=== PATIENT | male | born 1965 | race African-American/Black ===

== ENCOUNTER 2017-06-02 14:29 | Emergency (ER) | payer BC ==
[~2017-06-02] VITALS: Ht 170.2 cm; Wt 75.0 kg
[~2017-06-02 14:29] MED LIST: CIPRO500 MG OR; FLEXERIL OR; LORTAB 5 OR; LORTAB5 PO; MEDDOSEPAK OR; NAPROSYN375 MG PO; NAPROSYN500 MG OR; NAPROSYN500 MG PO; PENICILLN VK500 MG PO; TYLENOL 500MG TAB PO; ULTRAM50 MG OR
[2017-06-02 15:21] LABS: HEMATOCRIT 48.5 % (39.0-50.0); HEMOGLOBIN 16.6 g/dl (14.0-18.0); IMMATURE GRANULOCYTES 0.1 % (0.0-1.0); MEAN CELL VOLUME 97.6 fL CALC (80.0-100.0); MEAN CORPUSCULAR HGB 33.4 pG CALC (26.0-32.0); MEAN CORPUSCULAR HGB CONC 34.2 g/L CALC (32.0-36.0); NEUT# 3.8 thou/uL (1.82-7.42); RED BLOOD COUNT 4.97 mill/uL (4.70-6.10); RED CELL DISTRI WIDTH 12.6 % (11.5-15.5)
[2017-06-02 15:24] LABS: ALKALINE PHOSPHATASE 127 u/l (38-126); ANION GAP 16 (6-22 (CALC)); BILIRUBIN, TOTAL 0.7 mg/dL (0.0-1.4); BUN 11 mg/dL (9-20); BUN/CREATININE RATIO 9 (12-20 (CALC)); CARBON DIOXIDE 24 mmol/l (22-30); CHLORIDE 108 mmol/l (95-108); CREATININE 1.2 mg/dL (0.7-1.3); GFR > 60 ML/MIN (>=60 (CALC)); GFR FOR AFR.AMER. > 60 ML/MIN (>=60 (CALC)); POTASSIUM 4.5 mmol/l (3.5-5.1); SGPT/ALT 23 u/l (21-72); SODIUM 144 mmol/l (137-146); TOTAL PROTEIN 8.2 g/dL (6.3-8.2)
[2017-06-02 15:27] LABS: SGOT/AST 62 u/l (17-59)
[2017-06-02] MEDS ORDERED: TORADOL PO (16:52)
[2017-06-02 17:10] VITALS: BP 158/95
== END 2017-06-02 17:13 | disposition home or self-care (01) | DRG 206 ==
LOC: ED 14:29
PROVIDERS: Family Medicine
DX: M94.0 Chondrocostal junction syndrome [Tietze] (principal); F17.210 Nicotine dependence, cigarettes, uncomplicated; I10 Essential (primary) hypertension; R07.9 Chest pain, unspecified; R42 Dizziness and giddiness

== ENCOUNTER 2017-08-05 15:33 | Emergency (ER) | payer BC ==
[~2017-08-05] VITALS: Ht 170.2 cm; Wt 88.0 kg
[~2017-08-05 15:33] MED LIST changes: +TORADOL PO
[2017-08-05] MEDS ORDERED: METOPROL TAR25 MG PO (15:40)
[2017-08-05 16:35] LABS: HEMATOCRIT 50.6 % (39.0-50.0); HEMOGLOBIN 17.1 g/dl (14.0-18.0); IMMATURE GRANULOCYTES 0.2 % (0.0-1.0); MEAN CELL VOLUME 97.3 fL CALC (80.0-100.0); MEAN CORPUSCULAR HGB 32.9 pG CALC (26.0-32.0); MEAN CORPUSCULAR HGB CONC 33.8 g/L CALC (32.0-36.0); NEUT# 5.03 thou/uL (1.82-7.42); RED BLOOD COUNT 5.2 mill/uL (4.70-6.10); RED CELL DISTRI WIDTH 12.8 % (11.5-15.5)
[2017-08-05 16:37] LABS: URINE BILIRUBIN - DIPSTICK NEGATIVE (NEGATIVE); URINE BLOOD DIPSTICK NEGATIVE (NEGATIVE); URINE CLARITY CLOUDY; URINE COLOR DK. YELLOW; URINE GLUCOSE - DIPSTICK NEGATIVE (NEGATIVE); URINE KETONE NEGATIVE (NEGATIVE); URINE LEUK ESTERASE SMALL (NEGATIVE); URINE NITRITE - DIPSTICK NEGATIVE (Negative); URINE PH 5.5 (4.5-8.0); URINE PROTEIN - DIPSTICK 30 mg/dL (NEG-TRACE); URINE SPECIFIC GRAVITY >=1.030
[2017-08-05 16:40] LABS: BARBITURATES NEGATIVE (NEGATIVE); COCAINE POSITIVE (NEGATIVE); METHADONE NEGATIVE (NEGATIVE); OXCYCODONE NEGATIVE (NEGATIVE); TETRAHYDROCANNABIONOL NEGATIVE (NEGATIVE); TRICYLIC ANTIDEPRESSANTS NEGATIVE (NEGATIVE)
[2017-08-05 16:43] LABS: URINE SQUAMOUS EPITHELIAL CELL MODERATE EPI/hpf (0-FEW)
[2017-08-05 16:44] LABS: URINE MUCUS MANY hpf (NONE-FEW)
[2017-08-05 17:00] VITALS: BP 130/77
[2017-08-05] MEDS ORDERED: FLEXERIL PO (17:00)
[2017-08-05] MEDS ORDERED: TORADOL PO (17:00)
== END 2017-08-05 17:12 | disposition home or self-care (01) | DRG 563 ==
LOC: ED 15:33
PROVIDERS: Emergency Medicine
DX: S39.012A Strain of muscle, fascia and tendon of lower back, initial encounter (principal); B95.4 Other streptococcus as the cause of diseases classified elsewhere; F17.210 Nicotine dependence, cigarettes, uncomplicated; N20.0 Calculus of kidney

== ENCOUNTER 2017-09-06 02:49 | Emergency (ER) | payer BC ==
[~2017-09-06] VITALS: Ht 170.2 cm; Wt 84.0 kg
[~2017-09-06 02:49] MED LIST changes: +FLEXERIL PO; +METOPROL TAR25 MG PO
[2017-09-06 03:26] LABS: IMMATURE GRANULOCYTES 0.7 % (0.0-1.0); MEAN CELL VOLUME 100.7 fL CALC (80.0-100.0); MEAN CORPUSCULAR HGB 33.6 pG CALC (26.0-32.0); MEAN CORPUSCULAR HGB CONC 33.3 g/L CALC (32.0-36.0); NEUT# 4.15 thou/uL (1.82-7.42); RED BLOOD COUNT 2.8 mill/uL (4.70-6.10); RED CELL DISTRI WIDTH 12.6 % (11.5-15.5)
[2017-09-06 03:28] LABS: HEMATOCRIT 28.2 % (39.0-50.0); HEMOGLOBIN 9.4 g/dl (14.0-18.0)
[2017-09-06] MEDS ORDERED: PRAVSTATIN SODI10 MG PO (03:32)
[2017-09-06] MEDS ORDERED: LOSARTAN POTASS1 TA1 PO (03:33)
[2017-09-06] MEDS ORDERED: CYCLOBENZAPR10 MG PO (03:34)
[2017-09-06] MEDS ORDERED: CLOPIDOGREL75 MG PO (03:35)
[2017-09-06 03:39] LABS: ALKALINE PHOSPHATASE 64 u/l (38-126); AMYLASE 49 u/l (30-110); ANION GAP 14 (6-22 (CALC)); BILIRUBIN, TOTAL 0.2 mg/dL (0.0-1.4); BUN 58 mg/dL (9-20); BUN/CREATININE RATIO 44 (12-20 (CALC)); CARBON DIOXIDE 18 mmol/l (22-30); CHLORIDE 111 mmol/l (95-108); CREATININE 1.3 mg/dL (0.7-1.3); GFR 58 ML/MIN (>=60 (CALC)); GFR FOR AFR.AMER. > 60 ML/MIN (>=60 (CALC)); LIPASE 114 u/l (23-300); POTASSIUM 4.3 mmol/l (3.5-5.1); SGPT/ALT 29 u/l (21-72); SODIUM 139 mmol/l (137-146)
[2017-09-06 03:42] LABS: ALBUMIN 2.8 g/dL (3.2-5.0); SGOT/AST 14 u/l (17-59); TOTAL PROTEIN 5.7 g/dL (6.3-8.2)
[2017-09-06 03:51] LABS: MYOGLOBIN 35 ng/mL (0 - 121)
[2017-09-06 04:46] VITALS: BP 146/79
== END 2017-09-06 04:45 | disposition short-term general hospital (02) | DRG 379 ==
LOC: ED 02:49
PROVIDERS: Emergency Medicine
DX: K92.2 Gastrointestinal hemorrhage, unspecified (principal); I10 Essential (primary) hypertension; F17.210 Nicotine dependence, cigarettes, uncomplicated; Z95.5 Presence of coronary angioplasty implant and graft
CPT/HCPCS: S0164

== ENCOUNTER 2020-04-25 10:28 | Emergency (ER) | payer OTHER ==
[~2020-04-25] VITALS: Ht 170.2 cm; Wt 84.0 kg
[~2020-04-25 10:28] MED LIST changes: +CLOPIDOGREL75 MG PO; +CYCLOBENZAPR10 MG PO; +LOSARTAN POTASS1 TA1 PO; +PRAVSTATIN SODI10 MG PO
[2020-04-25] MEDS ORDERED: MOTRIN400 MG/TAB PO (11:08)
[2020-04-25 12:32] VITALS: BP 174/90
== END 2020-04-25 12:33 | disposition home or self-care (01) | DRG 552 ==
LOC: ED 10:28
DX: M54.42 Lumbago with sciatica, left side (principal); I10 Essential (primary) hypertension; E66.9 Obesity, unspecified; F17.210 Nicotine dependence, cigarettes, uncomplicated; Z95.5 Presence of coronary angioplasty implant and graft; V43.52XA Car driver injured in collision with other type car in traffic accident, initial encounter

== ENCOUNTER 2020-06-24 | Emergency (ER) | payer SELFPAY ==
[~2020-06-24] MED LIST changes: +MOTRIN400 MG/TAB PO
[2020-06-24 22:46] LABS: HEMATOCRIT 45.9 % (39.0-50.0); HEMOGLOBIN 15.1 g/dl (14.0-18.0); IMMATURE GRANULOCYTES 0.1 % (0.0-5.0); MEAN CELL VOLUME 97.5 fL CALC (80.0-100.0); MEAN CORPUSCULAR HGB 32.1 pG CALC (26.0-32.0); MEAN CORPUSCULAR HGB CONC 32.9 g/dL CAL (32.0-36.0); NEUT# 4.16 thou/uL (1.82-7.42); RED BLOOD COUNT 4.71 mill/uL (4.70-6.10); RED CELL DISTRI WIDTH 13.1 % (11.5-15.5)
[2020-06-24 23:00] LABS: AMYLASE 87 u/l (30-110); BUN 12 mg/dL (9-20); BUN/CREATININE RATIO 10 (12-20 (CALC)); CHLORIDE 103 mmol/l (95-108); CREATININE 1.2 mg/dL (0.7-1.3); GFR > 60 ML/MIN (>=60 (CALC)); GFR FOR AFR.AMER. > 60 ML/MIN (>=60 (CALC)); POTASSIUM 4.1 mmol/l (3.5-5.1); SGOT/AST 24 u/l (17-59); SODIUM 137 mmol/l (137-146)
[2020-06-24 23:07] LABS: ALBUMIN 3.9 g/dL (3.2-5.0); ALKALINE PHOSPHATASE 113 u/l (38-126); ANION GAP 12 (6-22 (CALC)); BILIRUBIN, TOTAL 0.5 mg/dL (0.0-1.4); CARBON DIOXIDE 26 mmol/l (22-30); TOTAL PROTEIN 7.4 g/dL (6.3-8.2)
[2020-06-25 02:42] LABS: URINE BILIRUBIN - DIPSTICK NEGATIVE (NEGATIVE); URINE BLOOD DIPSTICK NEGATIVE (NEGATIVE); URINE COLOR YELLOW; URINE GLUCOSE - DIPSTICK NEGATIVE (NEGATIVE); URINE KETONE NEGATIVE (NEGATIVE); URINE LEUK ESTERASE NEGATIVE (NEGATIVE); URINE PROTEIN - DIPSTICK NEGATIVE (NEG-TRACE); URINE UROBILINOGEN - DIPSTICK 0.2 E.U./dL (0.2)
[2020-06-25 02:43] LABS: URINE NITRITE - DIPSTICK NEGATIVE (Negative)
[2020-09-13] MEDS ORDERED: PROTONIX40 M2 PO (14:05)
== END 2020-06-25 04:33 | disposition home or self-care (01) | DRG 392 ==
PROVIDERS: Emergency Medicine
DX: R10.33 Periumbilical pain (principal); I10 Essential (primary) hypertension; I25.10 Atherosclerotic heart disease of native coronary artery without angina pectoris; F17.200 Nicotine dependence, unspecified, uncomplicated; Z87.11 Personal history of peptic ulcer disease; Z95.5 Presence of coronary angioplasty implant and graft
CPT/HCPCS: Q9967; S0164

== ENCOUNTER 2020-07-01 | Emergency (ER) | payer SELFPAY ==
[2020-07-01 23:17] LABS: HEMATOCRIT 48.9 % (39.0-50.0); HEMOGLOBIN 16.4 g/dl (14.0-18.0); IMMATURE GRANULOCYTES 0.1 % (0.0-5.0); MEAN CELL VOLUME 95.9 fL CALC (80.0-100.0); MEAN CORPUSCULAR HGB 32.2 pG CALC (26.0-32.0); MEAN CORPUSCULAR HGB CONC 33.5 g/dL CAL (32.0-36.0); NEUT# 5.41 thou/uL (1.82-7.42); RED BLOOD COUNT 5.1 mill/uL (4.70-6.10)
[2020-07-01 23:21] LABS: URINE BILIRUBIN - DIPSTICK NEGATIVE (NEGATIVE); URINE BLOOD DIPSTICK NEGATIVE (NEGATIVE); URINE COLOR YELLOW; URINE GLUCOSE - DIPSTICK NEGATIVE (NEGATIVE); URINE KETONE NEGATIVE (NEGATIVE); URINE LEUK ESTERASE NEGATIVE (NEGATIVE); URINE NITRITE - DIPSTICK NEGATIVE (Negative); URINE PROTEIN - DIPSTICK NEGATIVE (NEG-TRACE); URINE SPECIFIC GRAVITY 1.025; URINE UROBILINOGEN - DIPSTICK 0.2 E.U./dL (0.2)
[2020-07-01 23:43] LABS: ALBUMIN 4.3 g/dL (3.2-5.0); ALKALINE PHOSPHATASE 122 u/l (38-126); AMYLASE 97 u/l (30-110); ANION GAP 11 (6-22 (CALC)); BILIRUBIN, TOTAL 0.6 mg/dL (0.0-1.4); BUN 12 mg/dL (9-20); BUN/CREATININE RATIO 10 (12-20 (CALC)); CARBON DIOXIDE 29 mmol/l (22-30); CHLORIDE 101 mmol/l (95-108); CREATININE 1.2 mg/dL (0.7-1.3); GFR > 60 ML/MIN (>=60 (CALC)); GFR FOR AFR.AMER. > 60 ML/MIN (>=60 (CALC)); LIPASE 194 u/l (23-300); POTASSIUM 4.3 mmol/l (3.5-5.1); SODIUM 137 mmol/l (137-146); TOTAL PROTEIN 8.6 g/dL (6.3-8.2)
[2020-07-01 23:48] LABS: SGOT/AST 51 u/l (17-59)
[2020-07-01] MEDS ORDERED: MIRALAX17 GM PO (23:57)
[2020-07-01] MEDS ORDERED: MAGNESIUM296 ML/BTL PO (23:57)
[2020-09-13] MEDS ORDERED: PROTONIX40 M2 PO (14:05)
== END 2020-07-02 00:43 | disposition home or self-care (01) | DRG 392 ==
PROVIDERS: Family Medicine
DX: K59.00 Constipation, unspecified (principal); I10 Essential (primary) hypertension; I25.10 Atherosclerotic heart disease of native coronary artery without angina pectoris; F17.200 Nicotine dependence, unspecified, uncomplicated; Z87.11 Personal history of peptic ulcer disease

== ENCOUNTER 2020-07-23 17:30 | Emergency (ER) | payer BC ==
[~2020-07-23] VITALS: Ht 170.2 cm; Wt 84.0 kg
[~2020-07-23 17:30] MED LIST changes: +MAGNESIUM296 ML/BTL PO; +MIRALAX17 GM PO
[2020-07-23 18:05] LABS: HEMATOCRIT 45.2 % (39.0-50.0); HEMOGLOBIN 15.1 g/dl (14.0-18.0); IMMATURE GRANULOCYTES 0.1 % (0.0-5.0); MEAN CELL VOLUME 95.6 fL CALC (80.0-100.0); MEAN CORPUSCULAR HGB 31.9 pG CALC (26.0-32.0); MEAN CORPUSCULAR HGB CONC 33.4 g/dL CAL (32.0-36.0); NEUT# 4.84 thou/uL (1.82-7.42); RED BLOOD COUNT 4.73 mill/uL (4.70-6.10); RED CELL DISTRI WIDTH 12.4 % (11.5-15.5)
[2020-07-23 18:17] LABS: ALBUMIN 3.8 g/dL (3.2-5.0); ALKALINE PHOSPHATASE 123 u/l (38-126); ANION GAP 9 (6-22 (CALC)); BILIRUBIN, TOTAL 0.4 mg/dL (0.0-1.4); BUN 11 mg/dL (9-20); BUN/CREATININE RATIO 9 (12-20 (CALC)); CARBON DIOXIDE 28 mmol/l (22-30); CHLORIDE 105 mmol/l (95-108); CREATININE 1.3 mg/dL (0.7-1.3); GFR 58 ML/MIN (>=60 (CALC)); GFR FOR AFR.AMER. > 60 ML/MIN (>=60 (CALC)); LIPASE 127 u/l (23-300); POTASSIUM 3.6 mmol/l (3.5-5.1); SGOT/AST 28 u/l (17-59); SODIUM 138 mmol/l (137-146)
[2020-07-23 18:46] LABS: URINE BILIRUBIN - DIPSTICK NEGATIVE (NEGATIVE); URINE BLOOD DIPSTICK TRACE-INTACT (NEGATIVE); URINE COLOR YELLOW; URINE GLUCOSE - DIPSTICK NEGATIVE (NEGATIVE); URINE KETONE NEGATIVE (NEGATIVE); URINE LEUK ESTERASE NEGATIVE (NEGATIVE); URINE PROTEIN - DIPSTICK NEGATIVE (NEG-TRACE); URINE SPECIFIC GRAVITY 1.025; URINE UROBILINOGEN - DIPSTICK 0.2 E.U./dL (0.2)
[2020-07-23 18:47] LABS: URINE NITRITE - DIPSTICK NEGATIVE (Negative)
[2020-07-23] MEDS ORDERED: METRONIDAZOL500 MG PO (20:02)
[2020-07-23] MEDS ORDERED: CIPROFLOXACN500 MG PO (20:02)
[2020-07-23 20:04] VITALS: BP 129/82
[2020-09-13] MEDS ORDERED: PROTONIX40 M2 PO (14:05)
== END 2020-07-23 20:35 | disposition home or self-care (01) | DRG 392 ==
LOC: ED 17:30
DX: K29.80 Duodenitis without bleeding (principal); I10 Essential (primary) hypertension; I25.10 Atherosclerotic heart disease of native coronary artery without angina pectoris; F17.200 Nicotine dependence, unspecified, uncomplicated; Z87.11 Personal history of peptic ulcer disease; Z95.5 Presence of coronary angioplasty implant and graft
CPT/HCPCS: Q9967; S0164

== ENCOUNTER 2020-08-01 00:15 | Inpatient (IN) | payer BC ==
[~2020-08-01] VITALS: Ht 170.2 cm; Wt 90.6 kg
[~2020-08-01 00:15] MED LIST changes: +CIPROFLOXACN500 MG PO; +METRONIDAZOL500 MG PO
--- NOTE | 2020-08-01 00:20 | NUR ---
PT AMBULATORY TO ROOM # 9 FOR BEDSIDE TRIAGE.
--- NOTE | 2020-08-01 00:55 | NUR ---
IV SITE INITIATED TO - #20G, X1 ATTEMPT. LABS COLLECTED.
[2020-08-01 01:39] LABS: ALBUMIN 3.9 g/dL (3.2-5.0); ALKALINE PHOSPHATASE 110 u/l (38-126); AMYLASE 85 u/l (30-110); ANION GAP 9 (6-22 (CALC)); BUN 11 mg/dL (9-20); BUN/CREATININE RATIO 9 (12-20 (CALC)); CARBON DIOXIDE 28 mmol/l (22-30); CHLORIDE 105 mmol/l (95-108); CREATININE 1.2 mg/dL (0.7-1.3); GFR > 60 ML/MIN (>=60 (CALC)); GFR FOR AFR.AMER. > 60 ML/MIN (>=60 (CALC)); LIPASE 171 u/l (23-300); POTASSIUM 4.2 mmol/l (3.5-5.1); SGOT/AST 28 u/l (17-59); SODIUM 137 mmol/l (137-146); TOTAL PROTEIN 8.2 g/dL (6.3-8.2)
[2020-08-01 01:40] LABS: BILIRUBIN, TOTAL 0.2 mg/dL (0.0-1.4)
[2020-08-01 01:48] LABS: HEMATOCRIT 48.7 % (39.0-50.0); HEMOGLOBIN 16.1 g/dl (14.0-18.0); IMMATURE GRANULOCYTES 0.3 % (0.0-5.0); MEAN CORPUSCULAR HGB 32.1 pG CALC (26.0-32.0); MEAN CORPUSCULAR HGB CONC 33.1 g/dL CAL (32.0-36.0); NEUT# 5.61 thou/uL (1.82-7.42); RED BLOOD COUNT 5.02 mill/uL (4.70-6.10)
--- NOTE | 2020-08-01 02:00 | NUR ---
PT DRINKING 1ST GASTROGRAFFIN.
--- NOTE | 2020-08-01 03:20 | NUR ---
GASTROGRAFFIN COMPLETED. CT AWARE.
--- NOTE | 2020-08-01 04:30 | NUR ---
PT RESTING ON STRETCHER IN NAD. RESP EVEN AND UNLAB. SKIN WARM AND DRY. VERBALIZES NO NEEDS AT THIS TIME. CALL LGT WITHIN REACH.
--- NOTE | 2020-08-01 05:58 | NUR ---
Admission Note Report Given to: ADRIÁN CERVANTES Transported by: X Wheelchair Stretcher Transported with: X Nurse Transporter X Patent IV O2 Weigher And Grader Location: ICU X MS2 PT TRANSPORTED TO [place] VIA BY DOROTHEA CERVANTES IN STABLE CONDIITON.
[2020-08-01 06:00] VITALS: BP 145/87
--- NOTE | 2020-08-01 06:52 | NUR ---
PATIENT ADMITTED FROM ER VIA WHEELCHAIR WITH ER STAFF IN ATTENDANCE. PATIENT ABLE TO AMBULATE TO THE BR-STEADY GAIT. RESTING IN BED. IVF NS HUNG AND INFUSING VIA LAC SITE AT 200CC/HR. SITE IS HEALTHY WITH GOOD BLOOD RETURN. PATIENT C/O BURNING ABD PAIN-MEDICATED WITH MORPHINE 4MG IVP FOR PAIN. NPO AT THIS TIME. INSTRUCTED THAT WE NEED URINE SPEC WHEN HE IS ABLE TO PROVIDE. ORIENTED TO ROOM AND SURROUNDINGS. INSTRUCTED ON USE OF NURSE CALL LIGHT SYSTEM, TV REMOTE, AND PHONE. CALL LIGHT IN REACH. WILL CONT TO MONITOR.
[2020-08-01 08:00] VITALS: BP 146/91
--- NOTE | 2020-08-01 08:00 | NUR ---
ASSESSMENT IS COMPLETED: IV SITE IS FREE FROM REDNESS OR EDEMA. HR IS REG,PULSES ARE STRONG X4, ABD IS SOFT/DISTENDED WITH ACTIVE BS. BREATH SOUNDS ARE CLEAR,BILATERALLY, CONTINUE TO OBSERVE AND MONITOR.
--- NOTE | 2020-08-01 12:00 | NUR ---
PT IS RELAXING IN BED WITH NO DISTRESS NOTED. IV SITE IS FREE FROM REDNESS OR EDEMA.
--- NOTE | 2020-08-01 14:00 | NUR ---
URINE OBTAINED AND DR COOPER IN TO VISIT WITH PT.
[2020-08-01 14:32] LABS: URINE BILIRUBIN - DIPSTICK NEGATIVE (NEGATIVE); URINE BLOOD DIPSTICK NEGATIVE (NEGATIVE); URINE COLOR YELLOW; URINE GLUCOSE - DIPSTICK NEGATIVE (NEGATIVE); URINE KETONE NEGATIVE (NEGATIVE); URINE LEUK ESTERASE NEGATIVE (NEGATIVE); URINE PH 5.5 (4.5-8.0); URINE PROTEIN - DIPSTICK NEGATIVE (NEG-TRACE); URINE UROBILINOGEN - DIPSTICK 0.2 E.U./dL (0.2)
[2020-08-01 14:33] LABS: URINE NITRITE - DIPSTICK NEGATIVE (Negative)
[2020-08-01 15:10] VITALS: BP 153/93
--- NOTE | 2020-08-01 16:00 | NUR ---
PT IS RELAXING IN BED WITH NO DISTRESS NOTED. IV SITE IS FREE FROM REDNESS ORE JERMAIN.
--- NOTE | 2020-08-01 19:00 | NUR ---
REPORT FROM SETH SON. ASSUMED PT CARE.
[2020-08-01 19:06] VITALS: BP 158/84
--- NOTE | 2020-08-01 21:31 | NUR ---
AWAITING BED ASSIGNMENT FOR TRANSFER TO [facility]. DR COOPER NOTIFIED.
--- NOTE | 2020-08-02 00:33 | NUR ---
PT MEDICATED FOR ABD PAIN WITH PRN MORPHINE. IVF INFUSING WITHOUT DIFFICULTY. NO APPARENT DISTRESS NOTED. ABD SOFT DISTENDED, ACTIVE BOWEL SOUNDS NOTED. PT REMAINS NPO. CALL LIGHT WITHIN REACH. WILL CONTINUE TO MONITOR.
[2020-08-02 04:00] VITALS: BP 152/87
--- NOTE | 2020-08-02 05:13 | NUR ---
CALL RECEIVED FROM THIERRY AT [facility], CHECKING STATUS OF PT AND NOTIFIED MEDICAL TERMINOLOGIST STILL WAITING FOR ACCEPTING PHYSICIAN AND BED ASSIGNMENT. COUNTY COMMISSIONER NOTIFIED AT THIS TIME.
[2020-08-02 05:52] LABS: HEMATOCRIT 45.6 % (39.0-50.0); HEMOGLOBIN 14.8 g/dl (14.0-18.0); MEAN CELL VOLUME 97.6 fL CALC (80.0-100.0); MEAN CORPUSCULAR HGB 31.7 pG CALC (26.0-32.0); MEAN CORPUSCULAR HGB CONC 32.5 g/dL CAL (32.0-36.0); RED BLOOD COUNT 4.67 mill/uL (4.70-6.10); RED CELL DISTRI WIDTH 12.9 % (11.5-15.5)
[2020-08-02 06:29] LABS: ANION GAP 9 (6-22 (CALC)); BUN 9 mg/dL (9-20); BUN/CREATININE RATIO 8 (12-20 (CALC)); CHLORIDE 111 mmol/l (95-108); CREATININE 1.1 mg/dL (0.7-1.3); GFR > 60 ML/MIN (>=60 (CALC)); GFR FOR AFR.AMER. > 60 ML/MIN (>=60 (CALC)); MAGNESIUM 1.8 mg/dL (1.6-2.3); POTASSIUM 4.6 mmol/l (3.5-5.1); SODIUM 137 mmol/l (137-146)
[2020-08-02 06:48] LABS: CARBON DIOXIDE 22 mmol/l (22-30)
[2020-08-02 08:20] VITALS: BP 155/88
--- NOTE | 2020-08-02 08:20 | NUR ---
ASSESSMENT IS COMPLETED: IV SITE IS FREE FROM REDNESS OR EDEMA. HR IS REG,PULSES ARE STRONG, X4, ABD IS SOFT WITH ACTIVE BS., BREATH SOUNDS ARE CLEAR,BILATERALLY. CONTINUE TO OSBERVE AND MONITOR.
--- NOTE | 2020-08-02 12:25 | NUR ---
DR COOPER CALLED AND WILL BE THE ACCEPTING PHYSICIAN. TO GET PT OVER TO [facility].
--- NOTE | 2020-08-02 12:30 | NUR ---
PT IS RELAXING IN BED WITH NO DISTRESS NOTED.
[2020-08-02 14:45] VITALS: BP 159/87
[2020-08-02 19:00] VITALS: BP 171/89
--- NOTE | 2020-08-02 20:40 | NUR ---
I SPOKE WITH PT REGARDING TRANSPORTATION STATUS, HE VOCALIZED THAT IF THEY ARE NOT HERE AT 10PM HE IS LEAVING. I APOLOGIZED FOR THE DELAY IN TRANSPORT AND INFORMED HIM THAT I HAD JUST SPOKEN WITH DR. COOPER REGARDING HIS CARE/TRANSPORT AND THAT WE ARE TOLD BY THE TRANSPORT COMPANY THAT HE IS NEXT IN LINE. I DID TRY TO EXPLAIN THAT MORE CRITICAL CASES HAD CAUSED THE DELAY, BUT THAT I AM VERY SORRY FOR HIM HAVING TO WAIT, HE VERBALIZED UNDERSTANDING. I ALSO SPOKE WITH HIS GIRLFRIEND UPDATING HER OF THE STATUS I KNOW IT. 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 PT APPEARS STABLE AT THIS TIME. I COMPLETED MY ASSESSMENT AT THIS TIME. TENDERNESS IN ALL ABD. DENIES CP/N/V/D. MEDICATIONS ADMINISTERED ORDERS PROVIDE AND I ENCOURAGED HIM TO CALL ME FOR ANY NEEDS THAT ARISE AT ALL AND ASSURED HIM THAT I WOULD NOTIFY HIM OF ANY CHANGE REGARDING HIS TRANSFER STATUS, HE VERBALIZED AGREEMENT.
--- NOTE | 2020-08-02 20:54 | NUR ---
PT MEDICATED FOR PAIN 7/10 ON PAIN SCALE. ENCOURAGED HIM TO CALL NEEDS ARISE. CALL LIGHT IN HAND.
--- NOTE | 2020-08-02 21:56 | NUR ---
PT OFF MED SURG UNIT VIA STRETCHER ACCOMPANIED BY [facility] STAFF X2. PT APPEARS STABLE AT THIS TIME. HE SELF AMBULATED TO RESTROOM PRIOR TO LEAVING. NO DISTRESS. HE HAS ALSO BEEN MEDICATED FOR PAIN PRIOR TO LEAVING. BELONGINGS COLLECTED TO GO WITH PT. IV LEFT IN PLACE.
--- NOTE | 2020-08-02 22:19 | NUR ---
ATTEMPTS TO CALL REPORT MADE AT THIS TIME. THEY WERE UNCERTAIN WHO WOULD BE RECEIVING PT. I WILL CALL AGAIN TO TRY AND GIVE REPORT TO RECEIVING NURSE.
--- NOTE | 2020-08-02 22:50 | NUR ---
REPORT CALLED TO RECEIVING NURSE TO [facility].
[2020-09-13] MEDS ORDERED: PROTONIX40 M2 PO (14:05)
== END 2020-08-02 21:56 | DRG 382 ==
LOC: ED 00:15 → ED-I 04:44 → ED 05:10 → MS2 05:11
PROVIDERS: Emergency Medicine; Nurse Practitioner; ADMIT Internal Medicine; ATTEND Internal Medicine
DX: K26.5 Chronic or unspecified duodenal ulcer with perforation (principal); K29.80 Duodenitis without bleeding; I10 Essential (primary) hypertension; I25.10 Atherosclerotic heart disease of native coronary artery without angina pectoris; E78.5 Hyperlipidemia, unspecified; F17.210 Nicotine dependence, cigarettes, uncomplicated; Z87.11 Personal history of peptic ulcer disease; Z95.5 Presence of coronary angioplasty implant and graft; Z20.822 Contact with and (suspected) exposure to COVID-19
CPT/HCPCS: J1650; S0164

== ENCOUNTER 2020-08-10 11:18 | Emergency (ER) | payer BC ==
[~2020-08-10] VITALS: Ht 170.2 cm; Wt 84.0 kg
[2020-08-10 11:45] VITALS: BP 124/80
[2020-09-13] MEDS ORDERED: PROTONIX40 M2 PO (14:05)
== END 2020-08-10 11:49 | disposition home or self-care (01) | DRG 316 ==
LOC: ED 11:18
PROC: 0HQBXZZ Repair Right Upper Arm Skin, External Approach (ICD-10-PCS; principal; 2020-08-10)
DX: T82.838A Hemorrhage due to vascular prosthetic devices, implants and grafts, initial encounter (principal); I10 Essential (primary) hypertension; I25.10 Atherosclerotic heart disease of native coronary artery without angina pectoris; Y83.8 Other surgical procedures as the cause of abnormal reaction of the patient, or of later complication, without mention of misadventure at the time of the procedure; F17.210 Nicotine dependence, cigarettes, uncomplicated; Z95.5 Presence of coronary angioplasty implant and graft; Z87.11 Personal history of peptic ulcer disease

== ENCOUNTER → 2020-09-19 | Day surgery (SDC) | payer BC ==
[~2020-09-19] MED LIST changes: +PROTONIX40 M2 PO
== END | disposition home or self-care (01) | DRG 392 ==
PROC: 0DB98ZX Excision of Duodenum, Via Natural or Artificial Opening Endoscopic, Diagnostic (ICD-10-PCS; principal; 2020-09-19)
PROC: 0DB78ZX Excision of Stomach, Pylorus, Via Natural or Artificial Opening Endoscopic, Diagnostic (ICD-10-PCS; 2020-09-19)
PROC: 0DBN8ZX Excision of Sigmoid Colon, Via Natural or Artificial Opening Endoscopic, Diagnostic (ICD-10-PCS; 2020-09-19)
DX: K29.80 Duodenitis without bleeding (principal); K29.60 Other gastritis without bleeding; B96.81 Helicobacter pylori [H. pylori] as the cause of diseases classified elsewhere; Z12.11 Encounter for screening for malignant neoplasm of colon; K63.5 Polyp of colon; K64.9 Unspecified hemorrhoids; Z87.11 Personal history of peptic ulcer disease

== ENCOUNTER 2021-10-07 20:05 | Emergency (ER) | payer BC ==
[~2021-10-07] VITALS: Ht 170.2 cm; Wt 84.0 kg
[2021-10-07 20:13] VITALS: BP 170/93
[2021-10-07 20:31] VITALS: BP 145/83
[2021-10-07 20:35] VITALS: BP 145/83
== END 2021-10-07 20:41 | disposition home or self-care (01) | DRG 556 ==
LOC: ED 20:05
DX: M25.552 Pain in left hip (principal); I10 Essential (primary) hypertension; I25.10 Atherosclerotic heart disease of native coronary artery without angina pectoris; F17.200 Nicotine dependence, unspecified, uncomplicated; Z87.11 Personal history of peptic ulcer disease; Z95.5 Presence of coronary angioplasty implant and graft

== ENCOUNTER 2022-02-01 02:27 | Emergency (ER) | payer BC ==
[~2022-02-01] VITALS: Ht 170.2 cm; Wt 84.0 kg
[2022-02-01] VITALS (8 sets, daily range): BP systolic 137–164; BP diastolic 81–96
[2022-02-01 03:34] LABS: HEMATOCRIT 44.4 % (39.0-50.0); HEMOGLOBIN 15.3 g/dl (14.0-18.0); MEAN CELL VOLUME 96.1 fL CALC (80.0-100.0); MEAN CORPUSCULAR HGB 33.1 pG CALC (26.0-32.0); MEAN CORPUSCULAR HGB CONC 34.5 g/dL CAL (32.0-36.0); NEUT# 2.11 thou/uL (1.82-7.42); RED BLOOD COUNT 4.62 mill/uL (4.70-6.10); RED CELL DISTRI WIDTH 12.4 % (11.5-15.5)
[2022-02-01 04:02] LABS: ALBUMIN 3.6 g/dL (3.2-5.0); ALKALINE PHOSPHATASE 100 u/l (38-126); ANION GAP 10 (6-22 (CALC)); BILIRUBIN, TOTAL 0.2 mg/dL (0.0-1.4); BUN 8 mg/dL (9-20); BUN/CREATININE RATIO 7 (12-20 (CALC)); CARBON DIOXIDE 24 mmol/l (22-30); CHLORIDE 109 mmol/l (95-108); CREATININE 1.2 mg/dL (0.7-1.3); GFR FOR AFR.AMER. > 60 ML/MIN (>=60 (CALC)); GFR OTHER RACES > 60 ML/MIN (>=60 (CALC)); SGOT/AST 34 u/l (17-59); SODIUM 140 mmol/l (137-146); TOTAL PROTEIN 7.1 g/dL (6.3-8.2)
[2022-02-01 04:07] LABS: POTASSIUM 3.3 mmol/l (3.5-5.1)
[2022-02-01 04:14] LABS: MYOGLOBIN 49 ng/mL (0 - 121)
[2022-02-01] MEDS ORDERED: ZITHROMAX250 MG PO (04:48)
== END 2022-02-01 06:45 | disposition home or self-care (01) | DRG 195 ==
LOC: ED 02:27
PROVIDERS: Emergency Medicine
DX: J18.9 Pneumonia, unspecified organism (principal)

== ENCOUNTER 2023-08-31 18:25 | Emergency (ER) | payer OTHER ==
[~2023-08-31] VITALS: Ht 170.2 cm; Wt 97.0 kg
[~2023-08-31 18:25] MED LIST changes: +PREDNISONE20 MG PO; +ZITHROMAX250 MG PO; +ZPAK PO
[2023-08-31 18:35] VITALS: BP 177/86
[2023-08-31] MEDS ORDERED: DEXAMETHASONE SOD. PHOSPHATE 10 MG/ML VIAL IM ONE (18:40)
[2023-08-31] MEDS ORDERED: DEXAMETHASON6 MG PO (18:42)
[2023-08-31 18:46] VITALS: BP 163/86
[2023-08-31 18:55] VITALS: BP 163/86
== END 2023-08-31 18:58 | disposition home or self-care (01) | DRG 552 ==
LOC: ED 18:25
DX: M54.42 Lumbago with sciatica, left side (principal); I10 Essential (primary) hypertension; I25.10 Atherosclerotic heart disease of native coronary artery without angina pectoris; Z95.5 Presence of coronary angioplasty implant and graft; Z87.11 Personal history of peptic ulcer disease; F17.200 Nicotine dependence, unspecified, uncomplicated

== ENCOUNTER 2023-09-06 19:19 | Emergency (ER) | payer OTHER ==
[~2023-09-06] VITALS: Ht 170.2 cm; Wt 98.0 kg
[~2023-09-06 19:19] MED LIST changes: +DEXAMETHASON6 MG PO
[2023-09-06 19:33] VITALS: BP 176/86
[2023-09-06] MEDS ORDERED: CARVEDILOL6.25 MG PO (19:47)
[2023-09-06] MEDS ORDERED: LIPITOR80 M1 PO (19:47)
[2023-09-06] MEDS ORDERED: PLAVIX75 MG PO (19:48)
[2023-09-06] MEDS ORDERED: VALSARTAN80 MG PO (19:49)
[2023-09-06 19:50] LABS: BASO% 0.4 % (0-3); EOS% 4.8 % (0-8); HEMATOCRIT 45.6 % (39.0-50.0); HEMOGLOBIN 15.1 g/dl (14.0-18.0); IMMATURE GRANULOCYTES 0.3 % (0.0-5.0); MEAN CELL VOLUME 98.5 fL CALC (80.0-100.0); MEAN CORPUSCULAR HGB 32.6 pG CALC (26.0-32.0); MEAN CORPUSCULAR HGB CONC 33.1 g/dL CAL (32.0-36.0); MONO% 8.4 % (2-13); NEUT# 5.12 thou/uL (1.82-7.42); NEUT% 57.1 % (42-76); RED BLOOD COUNT 4.63 mill/uL (4.70-6.10)
[2023-09-06 19:59] VITALS: BP 149/78
[2023-09-06 20:00] VITALS: BP 144/79
[2023-09-06 20:01] LABS: ALBUMIN 3.5 g/dL (3.2-5.0); CREATININE 1.2 mg/dL (0.7-1.3)
[2023-09-06 20:10] LABS: BILIRUBIN, TOTAL 0.5 mg/dL (0.2-1.3); POTASSIUM 4.3 mmol/l (3.5-5.1)
[2023-09-06 20:30] VITALS: BP 156/73
[2023-09-06 20:40] LABS: URINE BILIRUBIN - DIPSTICK Negative (NEGATIVE); URINE BLOOD DIPSTICK Trace-intact (NEGATIVE); URINE GLUCOSE - DIPSTICK Negative (NEGATIVE); URINE KETONE Negative (NEGATIVE); URINE LEUK ESTERASE Negative (NEGATIVE); URINE NITRITE - DIPSTICK Negative (Negative); URINE PROTEIN - DIPSTICK Negative (NEG-TRACE); URINE SPECIFIC GRAVITY 1.025
[2023-09-06 20:41] LABS: URINE COLOR Yellow
[2023-09-06 21:01] VITALS: BP 152/71
[2023-09-06 21:26] VITALS: BP 152/71
== END 2023-09-06 21:26 | disposition home or self-care (01) | DRG 305 ==
LOC: ED 19:19
PROVIDERS: Family Medicine
DX: I10 Essential (primary) hypertension (principal); I25.10 Atherosclerotic heart disease of native coronary artery without angina pectoris; I25.2 Old myocardial infarction; F17.210 Nicotine dependence, cigarettes, uncomplicated; Z95.5 Presence of coronary angioplasty implant and graft; Z87.11 Personal history of peptic ulcer disease

== ENCOUNTER 2024-02-29 05:20 | Emergency (ER) | payer OTHER ==
[~2024-02-29] VITALS: Ht 170.2 cm; Wt 89.0 kg
[~2024-02-29 05:20] MED LIST changes: +CARVEDILOL6.25 MG PO; +LIPITOR80 M1 PO; +PLAVIX75 MG PO; +VALSARTAN80 MG PO
[2024-02-29] MEDS ORDERED: CELEBREX200 M1 PO (06:22)
[2024-02-29 06:37] VITALS: BP 129/78
== END 2024-02-29 06:37 | disposition home or self-care (01) | DRG 563 ==
LOC: ED 05:20
DX: S46.912A Strain of unspecified muscle, fascia and tendon at shoulder and upper arm level, left arm, initial encounter (principal); I10 Essential (primary) hypertension; I25.10 Atherosclerotic heart disease of native coronary artery without angina pectoris; I25.2 Old myocardial infarction; F17.200 Nicotine dependence, unspecified, uncomplicated; X50.0XXA Overexertion from strenuous movement or load, initial encounter; Y93.89 Activity, other specified; Y92.89 Other specified places as the place of occurrence of the external cause; Z95.5 Presence of coronary angioplasty implant and graft; Z87.11 Personal history of peptic ulcer disease; Y99.0 Civilian activity done for income or pay

== ENCOUNTER 2024-03-21 11:51 | Emergency (ER) | payer OTHER ==
[~2024-03-21 11:51] MED LIST changes: +CELEBREX200 M1 PO
== END 2024-03-21 14:13 | disposition left against medical advice (07) | DRG 951 ==
LOC: ED 11:51 → LWOBS 13:16
DX: Z53.21 Procedure and treatment not carried out due to patient leaving prior to being seen by health care provider (principal)